=== PATIENT | male | born 1960 | race Caucasian/White ===

== ENCOUNTER 2018-06-17 14:26 | Inpatient (IN) | payer OTHER ==
[~2018-06-17] VITALS: Ht 182.9 cm; Wt 86.2 kg
[~2018-06-17 14:26] MED LIST: CEPH500 PO; Percocet 5-3251 EACH PO
[2018-06-17 15:18] LABS: BASOPHILS ABSOLUTE AUTO 0.05 K/mm3 (0.00-0.23); BASOPHILS PERCENT AUTO 0 % (0-2); EOSINOPHILS PERCENT AUTO 1 % (0-6); Hematocrit 40.6 % (37.0-53.0); Hemoglobin 13.5 g/dL (13.5-17.5); IMMATURE GRAN ABSOLUTE AUTO 0.04 K/mm3 (0.00-0.10); IMMATURE GRAN PERCENT AUTO 0 % (0-1); LYMPHOCYTES PERCENT AUTO 9 % (21-46); MONOCYTES ABSOLUTE AUTO 1.52 K/mm3 (0.16-1.47); MONOCYTES PERCENT AUTO 12 % (4-13); Mean Corpuscular HGB 27.9 pg (26.0-34.0); Mean Corpuscular HGB Conc 33.3 g/dL (31.5-36.5); Mean Corpuscular Volume 84 fL (80-100); Mean Platelet Volume 10.1 fL (9.1-12.4); NEUTROPHILS PERCENT AUTO 77 % (41-73); Platelet Count 299 K/mm3 (150-400); RDW Coefficient Variation 12.7 % (11.7-14.2); RDW Standard Deviation 38.6 fL (35.1-46.3); Red Blood Cell Count 4.84 M/mm3 (4.30-5.90); White Blood Cell Count 12.41 K/mm3 (4.00-11.30)
[2018-06-17 15:58] LABS: Anion Gap 6 mmol/L (6-16); Blood Urea Nitrogen 10 mg/dL (8-24); Bun/Creatinine Ratio 13.2 (12.0-20.0); CO2, Blood 29 mmol/L (21-32); Calcium, Blood 8.7 mg/dL (8.5-10.1); Chloride, Blood 97 mmol/L (98-108); Creatinine, Blood 0.76 mg/dL (0.60-1.20); Glomerular Filtration Rate >60 (60-); Glucose, Blood 369 mg/dL (70-99); Potassium, Blood 4.3 mmol/L (3.5-5.5); Sodium, Blood 132 mmol/L (136-145)
[2018-06-18 05:13] LABS: Hemoglobin 11.6 g/dL (13.5-17.5); Mean Corpuscular HGB 28.1 pg (26.0-34.0); Mean Corpuscular HGB Conc 33.1 g/dL (31.5-36.5); Mean Corpuscular Volume 85 fL (80-100); Mean Platelet Volume 9.8 fL (9.1-12.4); Platelet Count 235 K/mm3 (150-400); RDW Coefficient Variation 12.7 % (11.7-14.2); RDW Standard Deviation 39.3 fL (35.1-46.3); Red Blood Cell Count 4.13 M/mm3 (4.30-5.90); White Blood Cell Count 10.98 K/mm3 (4.00-11.30)
--- NOTE | 2018-06-18 05:41 | NUR ---
NEW ADMIT THIS SHIFT FOR RIGHT FOOT CELLULITIS RT DIABETIC FOOT ULCER. PT DID WELL AND SLEPT MOST OF SHIFT. PLAN FOR KLOEPPER CONSULT WITH POSSIBLE OR FOR DEBRIDEMENT OF WOUND. PT HAS SURGICAL PACKET ON CHART, NEW 18G IV RIGHT HAND, NPO, IVF AND IV ABX INFUSING.
[2018-06-18 05:54] LABS: Anion Gap 4 mmol/L (6-16); Blood Urea Nitrogen 8 mg/dL (8-24); CO2, Blood 30 mmol/L (21-32); Calcium, Blood 8.4 mg/dL (8.5-10.1); Chloride, Blood 106 mmol/L (98-108); Creatinine, Blood 0.73 mg/dL (0.60-1.20); Glomerular Filtration Rate >60 (60-); Glucose, Blood 154 mg/dL (70-99); Sodium, Blood 140 mmol/L (136-145)
--- NOTE | 2018-06-18 11:50 | NUR ---
TO SDS FROM ROOM 208 VIA TENZIN MOCTEZUMA, DEMETRICE, CONFIRMS NPO/PROCEDURE. History, Chart, Medications and Allergies reviewed before start of procedure.Lungs clear T/O to Auscultation. Patient confirms NPO status and agrees with scheduled surgery. Pre-Op teaching done. Pt verbalizes understanding.
--- NOTE | 2018-06-18 18:29 | NUR ---
SHIFT SUMMARY WOUND VAC WNL POST OP; DENIES PAIN. ABX GIVEN PRESCRIBED.
[2018-06-19 00:10] LABS: Bilirubin, Urine Neg (Neg); Blood, Urine Neg (Neg); Glucose Qualitative, Urine 4+ (Neg); Ketones, Urine Neg (Neg); Leukocyte Esterase, Urine Neg (Neg); Nitrite, Urine Neg (Neg); Protein, Urine Neg (Neg); Source, Urine Voided; Urobilinogen, Urine 3+ (Normal)
[2018-06-19 00:12] LABS: Appearance, Urine Clear (Clear); Color, Urine Yellow (P-Yellow)
[2018-06-19 05:13] LABS: BASOPHILS ABSOLUTE AUTO 0.04 K/mm3 (0.00-0.23); BASOPHILS PERCENT AUTO 0 % (0-2); EOSINOPHILS ABSOLUTE AUTO 0.08 K/mm3 (0.00-0.68); EOSINOPHILS PERCENT AUTO 1 % (0-6); Hematocrit 31.5 % (37.0-53.0); Hemoglobin 10.5 g/dL (13.5-17.5); IMMATURE GRAN ABSOLUTE AUTO 0.03 K/mm3 (0.00-0.10); IMMATURE GRAN PERCENT AUTO 0 % (0-1); LYMPHOCYTES ABSOLUTE AUTO 1.53 K/mm3 (0.84-5.20); LYMPHOCYTES PERCENT AUTO 14 % (21-46); MONOCYTES ABSOLUTE AUTO 0.95 K/mm3 (0.16-1.47); MONOCYTES PERCENT AUTO 9 % (4-13); Mean Corpuscular HGB Conc 33.3 g/dL (31.5-36.5); Mean Corpuscular Volume 84 fL (80-100); Mean Platelet Volume 10.3 fL (9.1-12.4); NEUTROPHILS ABSOLUTE AUTO 8.53 K/mm3 (1.96-9.15); NEUTROPHILS PERCENT AUTO 76 % (41-73); Platelet Count 237 K/mm3 (150-400); RDW Coefficient Variation 12.6 % (11.7-14.2); RDW Standard Deviation 38.1 fL (35.1-46.3); Red Blood Cell Count 3.75 M/mm3 (4.30-5.90); White Blood Cell Count 11.16 K/mm3 (4.00-11.30)
--- NOTE | 2018-06-19 07:37 | NUR ---
SHIFT SUMMARY PT A&O X4 T/O SHIFT. POD#1 WOUND VAC PLACEMENT TO R PEDAL ASPECT OF FOOT. SCANT SS DRAINAGE; SEAL/DRESSING INTACT. PPP X4. PHOTO OF WOUND TO L PEDAL FOOT DOCUMENTED IN CHART WITH PT PERMISSION. PAIN MANGED PER EMAR. RLE ELEVATED. PT BED MOBILE, REPOSITIONED SELF THROUGH NIGHT. IV GTT PER EMAR. SCD TO LLE. PT DENIES N/T IN ALL EXT. RA; DENIES SOB AND CP. CALL LIGHT IN REACH; PT DEMONSTRATES USE. REPORT GIVEN TO DAY SHIFT RN.
--- NOTE | 2018-06-19 18:14 | NUR ---
PATIENT W/O C/O THIS SHIFT. DENIES PAIN. VSS. WOUND VAC PATENT TO R FOOT. TAKING PO. PUBLIC HEALTH AIDES TEACHER HERE THIS AFTERNOON TO TALK WITH PATIENT RE: ADA DIET, ETC. POSSIBLE D/C HOME TOMORROW.
--- NOTE | 2018-06-20 05:50 | NUR ---
SHIFT SUMMARY PT A&O X4 T/O SHIFT. NO ACUTE CHANGES. POD#3 WOUND VAC PLACED TO R FOOT PLANTAR ASPECT. SEAL INTACT. SCANT SS DRAINAGE. RLE ELEVATED. PAIN MANGED PER EMAR. IV GTT PER EMAR. BLOOD GLUCOSE LEVELS MANGED PER ORDERS, PROTOCOL AND EMAR. PT BED MOBILE. PT DENIES SOB, CP AND NAUSEA T/O SHIFT. SCD TO LLE. CALL LIGHT IN REACH; PT DEMONSTRATES USE. WCTM UNTIL REPORT TO DAY SHIFT RN.
[2018-06-20 13:58] LABS: Vancomycin, Trough 21.6 ug/mL (5.0-10.0)
--- NOTE | 2018-06-20 14:18 | NUR ---
NOTIFIED MARGA IN PHARMACY OF PT'S CRITICAL HIGH VANCO TROUGH LEVEL.
--- NOTE | 2018-06-20 16:42 | NUR ---
SHIFT SUMMARY: PT IS A&O. HE HAS BEEN SHOWN HOW TO CHECK HIS BLOOD SUGAR AND PROVIDED WRITTEN MATERIALS BY THE SITE PHYSICIAN. 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 PT WOULD BENEFIT FROM REINFORCED EDUCATION. HE IS ABLE TO AMBULATE W/SBA WHILE WEIGHT BEARING ON HIS R HEEL ONLY. WOUND VAC BANDAGES CHANGED BY THIS AFTERNOON. WCTM UNTIL REPORT GIVEN TO NEXT SHIFT RN.
--- NOTE | 2018-06-20 22:20 | NUR ---
PT REQUESTED 2 PAIN MEDS EVEN THOUGH PAIN WAS LOW, DISCUSSED RAMIFICATIONS
--- NOTE | 2018-06-21 06:43 | NUR ---
a+o, wound dressing/vac cdi, successfully medicated for pain control, new IV placed on L upper arm, saline locked, call light in reach will continue to monitor and treat until provide sbar report to oncoming shift
--- NOTE | 2018-06-21 14:28 | NUR ---
SHIFT SUMMARY: PT IS A&OX4. WEIGHT BEARING ON R HEEL ONLY. HE IS ABLE TO MANAGE WOUND VAC/LINES WHEN AMBULATING TO THE RESTROOM. PT EDUCATED ON IMPORTANCE OF CONTROLLING HIS BLOOD GLUCOSE LEVELS AND WOUND HEALING. HIS IS ASKING APPROP QUESTIONS AND PARTICIPATING IN HIS CARE. PT IS HOPEFUL TO D/C HOME SATURDAY AFTERNOON. REPORT GIVEN TO NEXT RN. SHE WILL ADMINISTER THE [address] WOUND VAC IN PLACE WITH GOOD SEAL. SCANT OUTPUT IN CANISTER.
--- NOTE | 2018-06-22 00:11 | NUR ---
ASSUMED CARE OF PT. PT APPEARS TO BE SLEEPING IN BED, RESP E/U. NO S/SX DISTRESS NOTED. WOUND VAC INTACT W/GOOD SX. WILL CONT TO MONITOR.
--- NOTE | 2018-06-22 04:22 | NUR ---
POD 4 S/P I&D OF R FOOT. PT VSS T/O NIGHT. WOUND VAC DRESSING INTACT W/GOOD SX. PAIN MGD PER EMAR W/REP RELIEF. PT INDEP IN ROOM, IS USING CALL LIGHT FOR ASSISTANCE, WILL CONT TO MONITOR UNTIL REP GIVEN TO ONCOMING RN.
--- NOTE | 2018-06-22 17:10 | NUR ---
SHIFT SUMMARY: WOUND VAC HAS A GOOD SEAL, DRESSING C/D/I. SBA WHILE OOB. TOLERATED UP FOR A SHOWER WELL. NEEDS ENCOURAGEMENT FOR OUT OF BED. PROVIDED DIETARY EDUCATION FOR BETTER ADA FREINDLY SNACKS. PT WOULD BENEFIT FROM MORE EDUCATION. WILL PASS ON TO NEXT RN FOR REINFORCEMENT. PT HAS DENIED PAIN T/O DAY. WILL CTM UNTIL REPORT GIVEN TO NEXT RN.
[2018-06-23 05:11] LABS: Albumin, Blood 2.8 g/dL (3.4-5.0); Anion Gap 6 mmol/L (6-16); Blood Urea Nitrogen 17 mg/dL (8-24); CO2, Blood 28 mmol/L (21-32); Chloride, Blood 103 mmol/L (98-108); Creatinine, Blood 0.74 mg/dL (0.60-1.20); Glomerular Filtration Rate >60 (60-); Glucose, Blood 158 mg/dL (70-99); Phosphorus, Blood 2.9 mg/dL (2.5-4.9); Potassium, Blood 4.3 mmol/L (3.5-5.5); Sodium, Blood 137 mmol/L (136-145)
--- NOTE | 2018-06-23 05:56 | NUR ---
NO CHANGES THIS SHIFT. PAIN WELL MANAGED WITH PO PRN PAIN MEDS. CONTINUING EDUCATION WITH DM DISEASE PROCESS, VOICES UNDERSTANDING. DENIES PAIN, DISCOMFORT, OR FURTHER NEEDS AT THIS TIME. SAFETY MEASURES IN PLACE. WILL CONTINUE TO MONITOR.
--- NOTE | 2018-06-23 17:48 | NUR ---
MEASUREMENTS: 17 H X 24 W X 25 D.
--- NOTE | 2018-06-23 17:59 | NUR ---
SHIFT SUMMARY PT A&OX4, VSS, POD5 I&D R FOOT, WOUND VAC CHANGED TODAY, MEASUREMENTS DOCUMENTED BY ORTHO SURGEON. PT TOOK CBG X 2 TODAY. DEICER INSPECTOR PNEUMATIC EDU ABOUT FOOD/SNACKS. DISCHARGE PLANNING IS WORKING ON INS & WOUND VAC FOR PT DC. DENIES PAIN TODAY. CBG'S CNI. QUYNH PO, DENIES N&V. WCTM & TX PRN UNTIL REPORT GIVEN TO ONCOMING MACRINA RN.
--- NOTE | 2018-06-24 04:18 | NUR ---
SHIFT SUMMARY: PT POD #6 FOR I&D OF R FOOT. WOUND VAC IN PLACE AND DRAINING SML AMTS OF SS FLUID. ULCER ON L FOOT OPEN TO AIR WITH NO DRG NOTED. VS WNL. A&O X4. MEDICATED WITH NORCO ONCE THIS SHIFT PER EMAR. PT C/O SOME N/V. EMESIS X1. PT REPORTS FEELING BETTER IMMEDIATELY AFTER. REPORTS EATING TOMATO SOUP EARLIER WHICH DID NOT SETTLE WITH HIS STOMACH. PT EDUCATED ON HIS DM DIAGNOSIS AND ORAL ABX. CONTINUE TO REINFORCE. BG CHECKS WNL. PT READY TO DISCHARGE PENDING POWER OUTAGE. WILL BE SENT HOME WITH WOUND VAC.
--- NOTE | 2018-06-24 08:52 | NUR ---
LATE NOTE, EDUCATION PROVIDED 06/23/18 ~11:30am Plate method and consistent carb/carb counting education provided to pt. Pt has difficulty recalling many concepts. Reviewed Plate Method handout multiple times, w/ focus on which foods are carbohydrates. Pt better with recall when addressing specific foods versus food groups. Pt asks appropriate questions. In the end, education focused on following the Plate Method (including each of five food groups at every meal, for a total of 3-4 carbohydrate choices at each meal). Pt seemed to grasp this concept most, especially with Plate Method Placemat Handout. Pt lunch tray arrived and we counted the carbohydrates on his meal tray, which he was able to identify and count with some mild competency. Pt will require much more practice and reinforcement regarding carbohydrate foods and carbohydrate counting.
--- NOTE | 2018-06-24 10:55 | NUR ---
ASSUMED CARE OF PATIENT AT THIS TIME.
--- NOTE | 2018-06-24 11:20 | NUR ---
THERAPY: OT IN ROOM TO WORK WITH PATIENT. DENIES PAIN AT THIS TIME.
--- NOTE | 2018-06-24 12:57 | NUR ---
HOME WOUND VAC DELIVERED. CM IN ROOM TO INSTRUCT USE. PT WORKING ON GETTING POWER SOURCE AT HOME TO KEEP WOUND VAC CHARGED.
--- NOTE | 2018-06-24 18:26 | NUR ---
PT HAS BEEN STABLE SINCE THIS RN ASSUMED CARE. PT INDEP IN ROOM, HEEL WALKING ONLY. WORKED WELL WITH THERAPY. PT NEEDS MORE EDUCATION ON CHECKING BLOOD SUGARS, INSTRUCTIONS ADDED TO DC EDUCATION. BLOOD SUGAR CHECKS CHANGED TO BID. PT HAS REQUIRED NO COVERAGE THIS SHIFT. PT HOME WOUND VAC DELIVERED THIS AFTERNOON, DC DELAYED R/T PT NOT HAVING POWER IN HOME. PT VERY WORRIED ABOUT ANIMAL THAT IS IN HOME AND IS ANXIOUS TO DC. NEW ORDER TO SEPARATE MEDS, PT GETS SICK TO HIS STOMACH WITH TOO MANY MEDS AT ONCE. PT GIVEN YOGURT WHEN THIS RN GAVE MEDS. PT INDEP TO BATHROOM, VOIDING WELL. GOOD APPETITE. CALLS APPROPRIATELY NEEDED.
--- NOTE | 2018-06-25 05:39 | NUR ---
POD 7 S/P I&D OF R FOOT. PT VSS T/O NIGHT. DRESSING AND WOUND VAC INTACT W/SCANT DRNG. WOUND VAC W/GOOD SEAL, SX MAINTAINED T/O NIGHT. PT DENIED PAIN. PT INDEP IN ROOM, AMB ON HEEL. PT ASKING QUESTIONS R/T DIABETIC DIET OPTIONS, IS RECEPTORVE TO INFORMATION. PT USING CALL LIGHT FOR ASSISTANCE, WILL CONT TO MONITOR UNTIL REP GIVEN TO ONCOMING RN.
[2018-06-25] MEDS ORDERED: Tylenol325 MG PO (11:48)
[2018-06-25] MEDS ORDERED: CIPR500 PO (11:48)
[2018-06-25] MEDS ORDERED: HYDR1TAB94 PO (11:49)
[2018-06-25] MEDS ORDERED: GLIP5 PO (11:49)
[2018-06-25] MEDS ORDERED: METF500C PO (11:50)
[2018-06-25] MEDS ORDERED: INSULANPEN SC (11:50)
[2018-06-25] MEDS ORDERED: Acidophilus La100 GM PO (11:50)
[2018-06-25] MEDS ORDERED: METR500 PO (11:51)
--- NOTE | 2018-06-25 12:59 | NUR ---
PROVENA DRESSING PLACED TO RIGHT FOOT WITH GOOD SUCTION OBTAINED
--- NOTE | 2018-06-25 15:23 | NUR ---
PATIENT EDUCATED ON INSULIN PEN, MONITORING OF BLOOD SUGAR, PROVENA WOUND VAC
== END 2018-06-25 16:36 | disposition home or self-care (01) | DRG 854 ==
LOC: ER 14:26 → SURS 21:34
PROVIDERS: Internal Medicine; Orthopaedic Surgery; Pharmacist; Physician Assistant; ADMIT Internal Medicine
PROC: 0JDQ0ZZ Extraction of Right Foot Subcutaneous Tissue and Fascia, Open Approach (ICD-10-PCS; principal; 2018-06-18 12:30)
DX: A41.9 Sepsis, unspecified organism (principal); E87.1 Hypo-osmolality and hyponatremia; L03.115 Cellulitis of right lower limb; L97.518 Non-pressure chronic ulcer of other part of right foot with other specified severity; E11.621 Type 2 diabetes mellitus with foot ulcer; R65.20 Severe sepsis without septic shock; Z66 Do not resuscitate; Z79.4 Long term (current) use of insulin
CPT/HCPCS: 36415; 73630; 73701; 80048; 80069; 80202; 81003; 82947; 83036; 83605; 85025; 85027; 87040; 87070; 87071; 87075; 87076; 87077; 87147; 87186; 87205; 93005; 93010; 96361-59; 96365-59; 96366-59; 96367-59; 97161; 97165; 97530; 97535; 99285-25; J1100; J1650; J1885; J2250; J2370; J2405; J2543; J3010; J3370; J7030; J7050; J7120; Q9967

== ENCOUNTER 2018-07-08 12:17 | Day surgery (SDC) | payer OTHER ==
[~2018-07-08 12:17] MED LIST changes: +Acidophilus La100 GM PO; +CIPR500 PO; +GLIP5 PO; +HYDR1TAB94 PO; +INSULANPEN SC; +METF500C PO; +METR500 PO; +Tylenol325 MG PO
== END 2018-07-08 22:36 | disposition home or self-care (01) ==
LOC: WOUND 12:17
DX: E11.621 Type 2 diabetes mellitus with foot ulcer (principal); E11.628 Type 2 diabetes mellitus with other skin complications; L97.513 Non-pressure chronic ulcer of other part of right foot with necrosis of muscle; L97.525 Non-pressure chronic ulcer of other part of left foot with muscle involvement without evidence of necrosis; L03.115 Cellulitis of right lower limb
CPT/HCPCS: G0463

== ENCOUNTER 2018-07-11 00:58 | Day surgery (SDC) | payer OTHER | END 2018-07-11 12:00 | disposition home or self-care (01) | LOC: WOUND 00:58 | DX: T81.89XA Other complications of procedures, not elsewhere classified, initial encounter (principal); E11.621 Type 2 diabetes mellitus with foot ulcer; L97.525 Non-pressure chronic ulcer of other part of left foot with muscle involvement without evidence of necrosis; E11.40 Type 2 diabetes mellitus with diabetic neuropathy, unspecified ==

== ENCOUNTER 2018-07-14 01:22 | Day surgery (SDC) | payer OTHER | END 2018-07-14 22:38 | disposition home or self-care (01) | LOC: WOUND 01:22 | DX: T81.89XA Other complications of procedures, not elsewhere classified, initial encounter (principal); E11.621 Type 2 diabetes mellitus with foot ulcer; L97.525 Non-pressure chronic ulcer of other part of left foot with muscle involvement without evidence of necrosis; E11.40 Type 2 diabetes mellitus with diabetic neuropathy, unspecified | CPT/HCPCS: G0463 ==

== ENCOUNTER 2018-07-15 00:11 | Day surgery (SDC) | payer OTHER | END 2018-07-15 22:49 | disposition home or self-care (01) | LOC: WOUND 00:11 | DX: T81.89XA Other complications of procedures, not elsewhere classified, initial encounter (principal); E11.621 Type 2 diabetes mellitus with foot ulcer; L97.525 Non-pressure chronic ulcer of other part of left foot with muscle involvement without evidence of necrosis; E11.40 Type 2 diabetes mellitus with diabetic neuropathy, unspecified | CPT/HCPCS: G0463 ==

== ENCOUNTER 2018-07-16 00:36 | Day surgery (SDC) | payer OTHER | END 2018-07-16 22:35 | disposition home or self-care (01) | LOC: WOUND 00:36 | DX: E11.621 Type 2 diabetes mellitus with foot ulcer (principal); L97.513 Non-pressure chronic ulcer of other part of right foot with necrosis of muscle; L97.522 Non-pressure chronic ulcer of other part of left foot with fat layer exposed; L03.115 Cellulitis of right lower limb; E11.40 Type 2 diabetes mellitus with diabetic neuropathy, unspecified | CPT/HCPCS: 87070; 87075; 87077; 87186; 87205 ==

== ENCOUNTER 2018-07-21 13:38 | Day surgery (SDC) | payer OTHER | END 2018-07-21 22:44 | disposition home or self-care (01) | LOC: WOUND 13:38 | DX: E11.621 Type 2 diabetes mellitus with foot ulcer (principal); L97.515 Non-pressure chronic ulcer of other part of right foot with muscle involvement without evidence of necrosis; L97.521 Non-pressure chronic ulcer of other part of left foot limited to breakdown of skin; E11.40 Type 2 diabetes mellitus with diabetic neuropathy, unspecified ==

== ENCOUNTER 2018-07-25 00:27 | Day surgery (SDC) | payer OTHER | END 2018-07-25 23:03 | disposition home or self-care (01) | LOC: WOUND 00:27 | DX: E11.621 Type 2 diabetes mellitus with foot ulcer (principal); L97.515 Non-pressure chronic ulcer of other part of right foot with muscle involvement without evidence of necrosis; L97.522 Non-pressure chronic ulcer of other part of left foot with fat layer exposed; E11.40 Type 2 diabetes mellitus with diabetic neuropathy, unspecified | CPT/HCPCS: G0463 ==

== ENCOUNTER 2018-07-28 00:14 | Day surgery (SDC) | payer OTHER | END 2018-07-28 23:00 | disposition home or self-care (01) | LOC: WOUND 00:14 | DX: E11.621 Type 2 diabetes mellitus with foot ulcer (principal); L03.115 Cellulitis of right lower limb; L97.515 Non-pressure chronic ulcer of other part of right foot with muscle involvement without evidence of necrosis; L97.522 Non-pressure chronic ulcer of other part of left foot with fat layer exposed; E11.40 Type 2 diabetes mellitus with diabetic neuropathy, unspecified ==

== ENCOUNTER 2018-07-30 00:46 | Day surgery (SDC) | payer OTHER | END 2018-07-30 23:06 | disposition home or self-care (01) | LOC: WOUND 00:46 | DX: E11.621 Type 2 diabetes mellitus with foot ulcer (principal); L97.525 Non-pressure chronic ulcer of other part of left foot with muscle involvement without evidence of necrosis; E11.40 Type 2 diabetes mellitus with diabetic neuropathy, unspecified ==

== ENCOUNTER 2018-08-01 00:43 | Day surgery (SDC) | payer OTHER | END 2018-08-01 22:47 | disposition home or self-care (01) | LOC: WOUND 00:43 | DX: E11.621 Type 2 diabetes mellitus with foot ulcer (principal); L97.525 Non-pressure chronic ulcer of other part of left foot with muscle involvement without evidence of necrosis | CPT/HCPCS: G0463 ==

== ENCOUNTER 2018-08-04 13:15 | Day surgery (SDC) | payer OTHER | END 2018-08-04 22:43 | disposition home or self-care (01) | LOC: WOUND 13:15 | DX: T81.89XA Other complications of procedures, not elsewhere classified, initial encounter (principal); E11.621 Type 2 diabetes mellitus with foot ulcer; L97.525 Non-pressure chronic ulcer of other part of left foot with muscle involvement without evidence of necrosis; E11.40 Type 2 diabetes mellitus with diabetic neuropathy, unspecified | CPT/HCPCS: G0463 ==

== ENCOUNTER 2018-08-06 11:00 | Day surgery (SDC) | payer OTHER | END 2018-08-06 22:53 | disposition home or self-care (01) | LOC: WOUND 11:00 | DX: E11.621 Type 2 diabetes mellitus with foot ulcer (principal); L97.511 Non-pressure chronic ulcer of other part of right foot limited to breakdown of skin; L97.525 Non-pressure chronic ulcer of other part of left foot with muscle involvement without evidence of necrosis | CPT/HCPCS: G0463 ==

== ENCOUNTER 2018-08-11 13:45 | Day surgery (SDC) | payer OTHER | END 2018-08-11 22:42 | disposition home or self-care (01) | LOC: WOUND 13:45 | DX: E11.621 Type 2 diabetes mellitus with foot ulcer (principal); L97.515 Non-pressure chronic ulcer of other part of right foot with muscle involvement without evidence of necrosis; L97.525 Non-pressure chronic ulcer of other part of left foot with muscle involvement without evidence of necrosis | CPT/HCPCS: G0463 ==

== ENCOUNTER 2018-08-13 07:55 | Day surgery (SDC) | payer OTHER | END 2018-08-13 22:37 | disposition home or self-care (01) | LOC: WOUND 07:55 | DX: T81.89XA Other complications of procedures, not elsewhere classified, initial encounter (principal); E11.621 Type 2 diabetes mellitus with foot ulcer; L97.515 Non-pressure chronic ulcer of other part of right foot with muscle involvement without evidence of necrosis; L97.525 Non-pressure chronic ulcer of other part of left foot with muscle involvement without evidence of necrosis; E11.40 Type 2 diabetes mellitus with diabetic neuropathy, unspecified | CPT/HCPCS: G0463 ==

== ENCOUNTER 2018-08-18 13:50 | Day surgery (SDC) | payer OTHER | END 2018-08-18 22:37 | disposition home or self-care (01) | LOC: WOUND 13:50 | DX: T81.89XA Other complications of procedures, not elsewhere classified, initial encounter (principal); E11.621 Type 2 diabetes mellitus with foot ulcer; L97.525 Non-pressure chronic ulcer of other part of left foot with muscle involvement without evidence of necrosis; E11.40 Type 2 diabetes mellitus with diabetic neuropathy, unspecified ==

== ENCOUNTER 2018-08-25 13:44 | Day surgery (SDC) | payer OTHER | END 2018-08-25 23:02 | disposition home or self-care (01) | LOC: WOUND 13:44 | DX: T81.89XA Other complications of procedures, not elsewhere classified, initial encounter (principal); E11.621 Type 2 diabetes mellitus with foot ulcer; L97.512 Non-pressure chronic ulcer of other part of right foot with fat layer exposed; L97.525 Non-pressure chronic ulcer of other part of left foot with muscle involvement without evidence of necrosis; E11.40 Type 2 diabetes mellitus with diabetic neuropathy, unspecified | CPT/HCPCS: 73630 ==

== ENCOUNTER 2018-09-01 13:45 | Day surgery (SDC) | payer OTHER | END 2018-09-01 22:38 | disposition home or self-care (01) | LOC: WOUND 13:45 | DX: T81.89XA Other complications of procedures, not elsewhere classified, initial encounter (principal); E11.621 Type 2 diabetes mellitus with foot ulcer; L97.512 Non-pressure chronic ulcer of other part of right foot with fat layer exposed; L97.525 Non-pressure chronic ulcer of other part of left foot with muscle involvement without evidence of necrosis; E11.69 Type 2 diabetes mellitus with other specified complication; M86.18 Other acute osteomyelitis, other site; E11.40 Type 2 diabetes mellitus with diabetic neuropathy, unspecified ==

== ENCOUNTER 2018-09-10 00:10 | Day surgery (SDC) | payer OTHER | END 2018-09-10 22:39 | disposition home or self-care (01) | LOC: WOUND 00:10 | DX: T81.89XA Other complications of procedures, not elsewhere classified, initial encounter (principal); E11.621 Type 2 diabetes mellitus with foot ulcer; L97.512 Non-pressure chronic ulcer of other part of right foot with fat layer exposed; E11.40 Type 2 diabetes mellitus with diabetic neuropathy, unspecified ==

== ENCOUNTER 2018-09-15 07:55 | Day surgery (SDC) | payer OTHER | END 2018-09-15 22:36 | disposition home or self-care (01) | LOC: WOUND 07:55 | DX: E11.621 Type 2 diabetes mellitus with foot ulcer (principal); E11.69 Type 2 diabetes mellitus with other specified complication; L97.512 Non-pressure chronic ulcer of other part of right foot with fat layer exposed; M86.18 Other acute osteomyelitis, other site; E11.40 Type 2 diabetes mellitus with diabetic neuropathy, unspecified ==

== ENCOUNTER 2018-09-24 14:31 | Day surgery (SDC) | payer OTHER | END 2018-09-24 22:46 | disposition home or self-care (01) | LOC: WOUND 14:31 | DX: E11.621 Type 2 diabetes mellitus with foot ulcer (principal); E11.69 Type 2 diabetes mellitus with other specified complication; L97.515 Non-pressure chronic ulcer of other part of right foot with muscle involvement without evidence of necrosis; M86.18 Other acute osteomyelitis, other site; E11.40 Type 2 diabetes mellitus with diabetic neuropathy, unspecified | CPT/HCPCS: G0463 ==

== ENCOUNTER 2019-01-04 17:28 | Emergency (ER) | payer OTHER ==
[~2019-01-04] VITALS: Ht 182.9 cm; Wt 79.4 kg
[2019-01-04] MEDS ORDERED: Monodox100 MG PO (20:11)
[2019-01-04] MEDS ORDERED: CEPH500 PO (20:11)
== END 2019-01-04 20:21 | disposition home or self-care (01) ==
LOC: ER 17:28
DX: E11.621 Type 2 diabetes mellitus with foot ulcer (principal); L97.519 Non-pressure chronic ulcer of other part of right foot with unspecified severity; Z91.030 Bee allergy status; Z79.899 Other long term (current) drug therapy; Z79.4 Long term (current) use of insulin
CPT/HCPCS: 73620; 99283-25

== ENCOUNTER 2019-01-16 07:31 | Day surgery (SDC) | payer OTHER ==
[~2019-01-16 07:31] MED LIST changes: +Monodox100 MG PO
[2019-01-16] MEDS ORDERED: LISI5 PO (12:03)
[2019-01-16] MEDS ORDERED: GLIM2 PO (13:01)
[2019-01-16] MEDS ORDERED: ATOR10 PO (13:02)
== END 2019-01-16 23:20 | disposition home or self-care (01) ==
LOC: WOUND
DX: E11.621 Type 2 diabetes mellitus with foot ulcer (principal); L97.515 Non-pressure chronic ulcer of other part of right foot with muscle involvement without evidence of necrosis; E11.40 Type 2 diabetes mellitus with diabetic neuropathy, unspecified; E11.42 Type 2 diabetes mellitus with diabetic polyneuropathy; L03.115 Cellulitis of right lower limb; E11.69 Type 2 diabetes mellitus with other specified complication; M86.9 Osteomyelitis, unspecified; M84.477A Pathological fracture, right toe(s), initial encounter for fracture; Z91.030 Bee allergy status; Z79.899 Other long term (current) drug therapy; Z79.4 Long term (current) use of insulin
CPT/HCPCS: 36415; 73630; 80053; 85025; 87071; 87075; 87147; 87205; 88305; 88311; 99283-25; G0463

== ENCOUNTER 2019-01-22 10:48 | Day surgery (SDC) | payer OTHER ==
[~2019-01-22] VITALS: Ht 182.9 cm; Wt 83.2 kg
[~2019-01-22 10:48] MED LIST changes: +ATOR10 PO; +GLIM2 PO; +LISI5 PO
--- NOTE | 2019-01-22 13:07 | NUR ---
01/22/19 1307 Agueda Tapia PT RESTING IN RECLINER EATING CRACKERS AND JUICE. PT DENIES PAIN AND NAUSEA AT THIS TIME. VSS.
== END 2019-01-22 13:41 | disposition home or self-care (01) ==
LOC: ORSCSDS 10:48
PROVIDERS: Podiatrist Foot & Ankle Surgery
PROC: 0Y6V0Z0 Detachment at Right 4th Toe, Complete, Open Approach (ICD-10-PCS; principal; 2019-01-22 12:00)
DX: M86.171 Other acute osteomyelitis, right ankle and foot (principal); E11.621 Type 2 diabetes mellitus with foot ulcer; E11.40 Type 2 diabetes mellitus with diabetic neuropathy, unspecified; Z87.891 Personal history of nicotine dependence; Z79.84 Long term (current) use of oral hypoglycemic drugs; Z79.899 Other long term (current) drug therapy
CPT/HCPCS: 82947; 88305; 88311; J0690; J2250; J2704

== ENCOUNTER 2019-02-09 15:28 | Day surgery (SDC) | payer OTHER | END 2019-02-09 23:17 | disposition home or self-care (01) | LOC: WOUND 15:28 | DX: T87.89 Other complications of amputation stump (principal); E11.621 Type 2 diabetes mellitus with foot ulcer; L97.512 Non-pressure chronic ulcer of other part of right foot with fat layer exposed; E11.40 Type 2 diabetes mellitus with diabetic neuropathy, unspecified; Z89.421 Acquired absence of other right toe(s) ==

== ENCOUNTER 2019-02-17 00:23 | Day surgery (SDC) | payer OTHER | END 2019-02-17 22:40 | disposition home or self-care (01) | LOC: WOUND 00:23 | DX: T87.89 Other complications of amputation stump (principal); E11.621 Type 2 diabetes mellitus with foot ulcer; L97.512 Non-pressure chronic ulcer of other part of right foot with fat layer exposed; E11.40 Type 2 diabetes mellitus with diabetic neuropathy, unspecified; Z89.421 Acquired absence of other right toe(s) ==

== ENCOUNTER 2019-02-26 00:13 | Day surgery (SDC) | payer OTHER | END 2019-02-26 23:08 | disposition home or self-care (01) | LOC: WOUND 00:13 | DX: E11.621 Type 2 diabetes mellitus with foot ulcer (principal); L97.514 Non-pressure chronic ulcer of other part of right foot with necrosis of bone; Z89.421 Acquired absence of other right toe(s); Z79.84 Long term (current) use of oral hypoglycemic drugs | CPT/HCPCS: G0463 ==

== ENCOUNTER 2022-03-15 09:07 | Inpatient (IN) | payer MEDICARE, OTHER ==
[~2022-03-15] VITALS: Ht 180.3 cm; Wt 82.5 kg
[2022-03-15 10:40] LABS: BASOPHILS ABSOLUTE AUTO 0.07 K/mm3 (0.00-0.23); BASOPHILS PERCENT AUTO 1 % (0-2); EOSINOPHILS ABSOLUTE AUTO 0.23 K/mm3 (0.00-0.68); EOSINOPHILS PERCENT AUTO 2 % (0-6); Hematocrit 38.9 % (37.0-53.0); Hemoglobin 12.7 g/dL (13.5-17.5); IMMATURE GRAN ABSOLUTE AUTO 0.06 K/mm3 (0.00-0.10); IMMATURE GRAN PERCENT AUTO 1 % (0-1); LYMPHOCYTES ABSOLUTE AUTO 1.33 K/mm3 (0.84-5.20); LYMPHOCYTES PERCENT AUTO 11 % (21-46); MONOCYTES ABSOLUTE AUTO 1.01 K/mm3 (0.16-1.47); MONOCYTES PERCENT AUTO 8 % (4-13); Mean Corpuscular HGB 26.8 pg (26.0-34.0); Mean Corpuscular HGB Conc 32.6 g/dL (31.5-36.5); Mean Corpuscular Volume 82 fL (80-100); Mean Platelet Volume 9.9 fL (9.1-12.4); NEUTROPHILS PERCENT AUTO 78 % (41-73); Platelet Count 418 K/mm3 (150-400); RDW Coefficient Variation 12.7 % (11.7-14.2); Red Blood Cell Count 4.74 M/mm3 (4.30-5.90)
[2022-03-15 11:51] LABS: Albumin, Blood 2.9 g/dL (3.4-5.0); Albumin/Globulin Ratio 0.6 (0.8-1.8); Bilirubin, Total 0.5 mg/dL (0.1-1.0); Bun/Creatinine Ratio 22.1 (12.0-20.0); Calcium, Blood 9.4 mg/dL (8.5-10.1); Creatinine, Blood 0.68 mg/dL (0.60-1.20); Globulin, Blood 5.1 g/dL (2.2-4.0); Potassium, Blood 4.9 mmol/L (3.5-5.5)
--- NOTE | 2022-03-15 19:50 | NUR ---
SUMMARY- PT A/O X4. AMBULATES STEADY ON FEET. NECROTIC L 2ND METATARCIL, FOUL SMELLING, BLACK ESCHAR SURROUNDING RED EDGES EXTENDING INTO FOOT 2 INCHES. PICTURES TAKEN. PT DENIES PAIN TO FOOT. DR DEXTER WILL BE PERFORMING SURG 03/16 APPROX 1530, DR RUIZ TO VISUALIZE FOOT AND SPEAK WITH PT THIS MANUEL, OK'D PT TO HAVE REG ADA DIET THROUGH BREAKFAST TOMORROW AND NPO NO LATER THAN 0830. BLOOD SUGAR CHECKED AT 1600, WAS 199, CALLED DR KAHN, INSTRUCTED TO NOT GIVE ANY INSULIN (DOSE ORDERED IN ED NOT GIVEN BY RN ALSO DC'D). FOOT CLEANSED WITH BETADINE, WRAPPED WITH XEREFORM AND GAUZE. REPORTED TO NOC RN'S.
[2022-03-16 05:07] LABS: BASOPHILS ABSOLUTE AUTO 0.05 K/mm3 (0.00-0.23); BASOPHILS PERCENT AUTO 1 % (0-2); EOSINOPHILS ABSOLUTE AUTO 0.28 K/mm3 (0.00-0.68); EOSINOPHILS PERCENT AUTO 3 % (0-6); Hematocrit 32.5 % (37.0-53.0); Hemoglobin 10.8 g/dL (13.5-17.5); IMMATURE GRAN ABSOLUTE AUTO 0.04 K/mm3 (0.00-0.10); IMMATURE GRAN PERCENT AUTO 1 % (0-1); LYMPHOCYTES ABSOLUTE AUTO 1.61 K/mm3 (0.84-5.20); LYMPHOCYTES PERCENT AUTO 18 % (21-46); MONOCYTES ABSOLUTE AUTO 0.85 K/mm3 (0.16-1.47); MONOCYTES PERCENT AUTO 10 % (4-13); Mean Corpuscular HGB 27.1 pg (26.0-34.0); Mean Corpuscular HGB Conc 33.2 g/dL (31.5-36.5); Mean Corpuscular Volume 82 fL (80-100); Mean Platelet Volume 9.9 fL (9.1-12.4); NEUTROPHILS ABSOLUTE AUTO 6.01 K/mm3 (1.96-9.15); NEUTROPHILS PERCENT AUTO 68 % (41-73); Platelet Count 369 K/mm3 (150-400); RDW Coefficient Variation 12.6 % (11.7-14.2); RDW Standard Deviation 37.5 fL (35.1-46.3); Red Blood Cell Count 3.99 M/mm3 (4.30-5.90); White Blood Cell Count 8.84 K/mm3 (4.00-11.30)
[2022-03-16 05:30] LABS: Albumin, Blood 2.2 g/dL (3.4-5.0); Albumin/Globulin Ratio 0.6 (0.8-1.8); Bilirubin, Total 0.2 mg/dL (0.1-1.0); Bun/Creatinine Ratio 24.2 (12.0-20.0); Calcium, Blood 8.5 mg/dL (8.5-10.1); Creatinine, Blood 0.7 mg/dL (0.60-1.20); Potassium, Blood 4.2 mmol/L (3.5-5.5); Total Protein, Blood 6.2 g/dL (6.4-8.2)
--- NOTE | 2022-03-16 07:14 | NUR ---
SHIFT SUMMARY; NO ACUTE CHANGES OVERNIGHT. THE PT DENIES ANY PAIN OR SOB. PT REMAINED INDEPENDENT IN THE ROOM. 2ND TOE AMPUTATION TO THE L FOOT IS SCHEDULED FOR TODAY AT 1530. CURRENTLY THE PT IS RESTING IN BED WITH THE BED IN THE LOWEST POSITION AND THE CALL LIGHT AT BEDSIDE.
[2022-03-16 13:46] LABS: Vancomycin, Trough 14.6 ug/mL (5.0-10.0)
--- NOTE | 2022-03-16 17:08 | NUR ---
SHIFT SUMMARY NO ACUTE CHANGES DURING SHIFT. PT ALERT AND ORIENTED, CALLS APPROPRIATELY. PT TO HAVE LEFT 2ND TOE AMPUTATED TODAY. PT LEFT FLOOR AT 1700. PT REMAINS ON RA, INDEPENDENT IN ROOM. WILL CONTINUE TO MONITOR UPON RETURN.
--- NOTE | 2022-03-16 19:27 | NUR ---
RETURNED TO FLOOR FROM OR WITH DRESSING INTACT OF LEFT FOOT. BIOLOGY TUTOR VOICED AMPUTATION OF 2ND TOE OF LEFT FOOT. AFFECT CHEERFUL. DENIES PAIN. IVF INFUSING. CALL LIGHT IN REACH.
--- NOTE | 2022-03-17 05:47 | NUR ---
RECREATION COUNSELOR SUMMARY PT IS POD 0 FOR AMPUTATION OF 2ND TOE ON L FOOT. PT HAS DENIED PAIN TONIGHT AND HAS DECLINED PAIN MEDS. TOE DRESSING WITH SOME SMALL AMOUNT OF DRAINAGE BUT INTACT. PT HAS RESTED MOST OF THE NIGHT WITH NO COMPLAINTS. EATING AND DRINKING WELL. VSS, WILL CONTINUE TO MONITOR.
[2022-03-17] MEDS ORDERED: GLIM2 PO (12:43)
--- NOTE | 2022-03-17 15:08 | NUR ---
PT D/C HOME. PT GIVEN DISCHARGE INSTRUCTIONS AND EDUCATIONI. ALL QUESTIONS ANSWERED AND PT VERBALIZED NO NEW QUESTIONS. DRESSING CHANGE COMPLETED PER MD ORDERS. PT TOLERATED WELL. ALL BELONGINGS RETURNED TO PT. PT TAKEN BY WHEEL CHAIR TO WAITING VEHICLE.
== END 2022-03-17 15:03 | disposition home or self-care (01) | DRG 854 ==
LOC: ER 09:07 → MEDS 12:35
PROVIDERS: Nurse Practitioner Acute Care; Physician Assistant; Podiatrist Foot & Ankle Surgery; ADMIT Family Medicine
PROC: 3E03329 Introduction of Other Anti-infective into Peripheral Vein, Percutaneous Approach (ICD-10-PCS; 2022-03-15)
PROC: 0Y6S0Z0 Detachment at Left 2nd Toe, Complete, Open Approach (ICD-10-PCS; principal; 2022-03-16 16:00)
DX: A41.9 Sepsis, unspecified organism (principal); E11.52 Type 2 diabetes mellitus with diabetic peripheral angiopathy with gangrene; M86.8X7 Other osteomyelitis, ankle and foot; I96 Gangrene, not elsewhere classified; L03.116 Cellulitis of left lower limb; E11.621 Type 2 diabetes mellitus with foot ulcer; L97.524 Non-pressure chronic ulcer of other part of left foot with necrosis of bone; B96.4 Proteus (mirabilis) (morganii) as the cause of diseases classified elsewhere; B95.4 Other streptococcus as the cause of diseases classified elsewhere; F12.10 Cannabis abuse, uncomplicated; B95.61 Methicillin susceptible Staphylococcus aureus infection as the cause of diseases classified elsewhere; Z91.038 Other insect allergy status; Z79.84 Long term (current) use of oral hypoglycemic drugs; Z79.899 Other long term (current) drug therapy; Z89.421 Acquired absence of other right toe(s)
CPT/HCPCS: 36415; 80053; 80202; 82947; 83605; 85025; 87040; 87071; 87075; 87077; 87147; 87186; 87205; 93005; 93010; 96365; 96366; 96375; 99284-25; A9270; J0692; J0696; J1100; J1885; J2250; J2405; J2704; J2795; J3010; J3370; J7030; J7050; J7120

== ENCOUNTER 2022-04-18 15:04 | Observation (INO) | payer MEDICARE, OTHER ==
[~2022-04-18] VITALS: Ht 180.3 cm; Wt 84.1 kg
[2022-04-18 19:59] LABS: BASOPHILS ABSOLUTE AUTO 0.04 K/mm3 (0.00-0.23); BASOPHILS PERCENT AUTO 1 % (0-2); EOSINOPHILS ABSOLUTE AUTO 0.13 K/mm3 (0.00-0.68); EOSINOPHILS PERCENT AUTO 2 % (0-6); Hematocrit 38.7 % (37.0-53.0); Hemoglobin 12.8 g/dL (13.5-17.5); IMMATURE GRAN ABSOLUTE AUTO 0.01 K/mm3 (0.00-0.10); IMMATURE GRAN PERCENT AUTO 0 % (0-1); LYMPHOCYTES ABSOLUTE AUTO 1.51 K/mm3 (0.84-5.20); LYMPHOCYTES PERCENT AUTO 23 % (21-46); MONOCYTES ABSOLUTE AUTO 0.65 K/mm3 (0.16-1.47); MONOCYTES PERCENT AUTO 10 % (4-13); Mean Corpuscular HGB 26.7 pg (26.0-34.0); Mean Corpuscular HGB Conc 33.1 g/dL (31.5-36.5); Mean Corpuscular Volume 81 fL (80-100); Mean Platelet Volume 10.2 fL (9.1-12.4); NEUTROPHILS ABSOLUTE AUTO 4.29 K/mm3 (1.96-9.15); NEUTROPHILS PERCENT AUTO 65 % (41-73); Platelet Count 262 K/mm3 (150-400); RDW Coefficient Variation 14.2 % (11.7-14.2); RDW Standard Deviation 41.1 fL (35.1-46.3); Red Blood Cell Count 4.79 M/mm3 (4.30-5.90); White Blood Cell Count 6.63 K/mm3 (4.00-11.30)
[2022-04-18 20:26] LABS: Albumin, Blood 3.5 g/dL (3.4-5.0); Albumin/Globulin Ratio 0.9 (0.8-1.8); Bilirubin, Total 0.4 mg/dL (0.1-1.0); Bun/Creatinine Ratio 18.8 (12.0-20.0); Calcium, Blood 9.2 mg/dL (8.5-10.1); Creatinine, Blood 0.8 mg/dL (0.60-1.20); Potassium, Blood 4.2 mmol/L (3.5-5.5); Total Protein, Blood 7.5 g/dL (6.4-8.2)
[2022-04-18 20:40] LABS: C-REACTIVE PROTEIN, EXT RANGE 0.601 mg/dL (0.000-0.300)
[2022-04-19 05:18] LABS: BASOPHILS ABSOLUTE AUTO 0.03 K/mm3 (0.00-0.23); BASOPHILS PERCENT AUTO 1 % (0-2); EOSINOPHILS ABSOLUTE AUTO 0.17 K/mm3 (0.00-0.68); EOSINOPHILS PERCENT AUTO 3 % (0-6); Hematocrit 33.8 % (37.0-53.0); Hemoglobin 11.3 g/dL (13.5-17.5); IMMATURE GRAN ABSOLUTE AUTO 0.01 K/mm3 (0.00-0.10); IMMATURE GRAN PERCENT AUTO 0 % (0-1); LYMPHOCYTES ABSOLUTE AUTO 1.46 K/mm3 (0.84-5.20); LYMPHOCYTES PERCENT AUTO 23 % (21-46); MONOCYTES ABSOLUTE AUTO 0.67 K/mm3 (0.16-1.47); MONOCYTES PERCENT AUTO 11 % (4-13); Mean Corpuscular HGB 26.9 pg (26.0-34.0); Mean Corpuscular HGB Conc 33.4 g/dL (31.5-36.5); Mean Corpuscular Volume 81 fL (80-100); Mean Platelet Volume 10.2 fL (9.1-12.4); NEUTROPHILS ABSOLUTE AUTO 3.97 K/mm3 (1.96-9.15); NEUTROPHILS PERCENT AUTO 63 % (41-73); Platelet Count 223 K/mm3 (150-400); RDW Coefficient Variation 14.5 % (11.7-14.2); RDW Standard Deviation 41.6 fL (35.1-46.3); White Blood Cell Count 6.31 K/mm3 (4.00-11.30)
[2022-04-19 05:56] LABS: Bun/Creatinine Ratio 19.3 (12.0-20.0); Calcium, Blood 8.8 mg/dL (8.5-10.1); Creatinine, Blood 0.83 mg/dL (0.60-1.20); Potassium, Blood 4.1 mmol/L (3.5-5.5)
--- NOTE | 2022-04-19 06:46 | NUR ---
NEW ADMIT/MANAGER OF REGULATORY AFFAIRS SUMMARY PT ARRIVED F/ED VIA WHEELCHIAR AT 2258; XFERED INDEPENDENTLY T/THE BED. PT A/OX4; ABLE TO MAKE NEEDS KNOWN. PT IS APROX 1 MONTH POST OP F/SECOND TO REMOVAL ON LEFT FOOT. WOUND IS OPEN AND DRAINING; DEEP TISSUE CULTURE SENT T/LAB--RESULTS PENDING. PT HAS HX OF DMT2. PT STATES HE HAS BEEN PRESCRIBED ORAL DIABETIC MEDS BUT DOES NOT REMEMBER WHEN HE LAST TOOK IT; PT ALSO NOT CHECKING BLOOD SUGARS REGULARLY. PT HAS BEEN NPO SINCE MIDNIGHT. DR. SIMS T/MEET WITH PT TODAY. PT PLEASANT AND COOPERATIVE. ORIENTED TO ROOM AND CALL LIGHT. Q6 BLOOD SUGARS WITH REGULAR INSULIN COVERAGE. PT INDEPENDENT IN THE ROOM. CALL LIGHT IN REACH. BED LOCKED AND LOW.
[2022-04-19] MEDS ORDERED: AMOCLA875 PO (10:16)
[2022-04-19] MEDS ORDERED: VISBIOME 112.51 EACH PO (10:16)
--- NOTE | 2022-04-19 12:07 | NUR ---
PT DISCHARGED THE PT VERBALIZED UNDERSTANDING OF THE DC INSTRUCTIONS. FOLLOOW UP APPOINTMENT WAS MADE FOR THE PT PRIOR TO DC. THE PTS PRESCRIPTIONS FAXED TO PHARMACY OF HIS REQUEST. THE PT WAS TRANSFERED OUT VIA WHEELCHAIR ACCOMPANIED BY THE SHIPPING MANAGER AND HIS FRIEND
== END 2022-04-19 12:08 | disposition home or self-care (01) ==
LOC: ER 15:04 → MEDS 15:05
PROVIDERS: Student in an Organized Health Care Education/Training Program; ADMIT Family Medicine
DX: E11.69 Type 2 diabetes mellitus with other specified complication (principal); M86.9 Osteomyelitis, unspecified; Z89.422 Acquired absence of other left toe(s); Z91.038 Other insect allergy status; Z79.84 Long term (current) use of oral hypoglycemic drugs
CPT/HCPCS: 36415; 73630; 80048; 80053; 82947; 83605; 85025; 85651; 86140; 87040; 87070; 87075; 87077; 87147; 87186; 87205; 96365; 96366; 99285-25; A9270; G0378; J1815; J2543; J3370; J7050; J7120

== ENCOUNTER 2022-06-13 00:10 | Day surgery (SDC) | payer MEDICARE, OTHER ==
[~2022-06-13 00:10] MED LIST changes: +AMOCLA875 PO; +VISBIOME 112.51 EACH PO
== END 2022-06-13 23:36 | disposition home or self-care (01) ==
LOC: WOUND 00:10
DX: E11.69 Type 2 diabetes mellitus with other specified complication (principal); M86.172 Other acute osteomyelitis, left ankle and foot; L97.529 Non-pressure chronic ulcer of other part of left foot with unspecified severity; Z89.421 Acquired absence of other right toe(s)
CPT/HCPCS: G0463

== ENCOUNTER 2022-06-28 01:57 | Day surgery (SDC) | payer MEDICARE, OTHER | END 2022-06-28 22:45 | disposition home or self-care (01) | LOC: WOUND 01:57 | DX: T87.89 Other complications of amputation stump (principal); E11.69 Type 2 diabetes mellitus with other specified complication; E11.621 Type 2 diabetes mellitus with foot ulcer; L97.512 Non-pressure chronic ulcer of other part of right foot with fat layer exposed; M86.172 Other acute osteomyelitis, left ankle and foot; Z89.421 Acquired absence of other right toe(s) | CPT/HCPCS: A9270; G0463 ==

== ENCOUNTER 2022-07-12 02:20 | Day surgery (SDC) | payer MEDICARE, OTHER | END 2022-07-12 22:34 | disposition home or self-care (01) | LOC: WOUND 02:20 | DX: E11.621 Type 2 diabetes mellitus with foot ulcer (principal); Z89.421 Acquired absence of other right toe(s); E11.69 Type 2 diabetes mellitus with other specified complication; M86.172 Other acute osteomyelitis, left ankle and foot; L97.529 Non-pressure chronic ulcer of other part of left foot with unspecified severity | CPT/HCPCS: G0463 ==

== ENCOUNTER 2022-07-19 02:14 | Day surgery (SDC) | payer MEDICARE, OTHER | END 2022-07-19 22:36 | disposition home or self-care (01) | LOC: WOUND 02:14 | DX: T87.43 Infection of amputation stump, right lower extremity (principal); E11.621 Type 2 diabetes mellitus with foot ulcer; M86.172 Other acute osteomyelitis, left ankle and foot; L97.529 Non-pressure chronic ulcer of other part of left foot with unspecified severity | CPT/HCPCS: G0463 ==

== ENCOUNTER 2024-02-03 06:22 | Day surgery (SDC) | payer MEDICARE, OTHER ==
[~2024-02-03] VITALS: Ht 180.3 cm; Wt 80.1 kg
[~2024-02-03 06:22] MED LIST changes: +Bactrim Ds Tab1 EACH PO; +Dexamethasone Sod Phos 10 MG/ML 1ML VIAL ONE; +FentaNYL Citrate 50 MCG/ML 2 ML Injection ONE; +Midazolam HCl 1MG / ML 2ML Vial ONE; +Ondansetron HCl 2 MG / ML 2ML Vial ONE; +propofoL 20 ML IV ONE
[2024-02-03] MEDS ORDERED: CeFAZolin Sodium 2,000 MG VIAL ONE (06:37)
[2024-02-03] MEDS ORDERED: NS 50 ML IV ONE (06:37)
[2024-02-03] MEDS ORDERED: Ipratropium/Albuterol SulF 2.5-0.5MG/3 ML Amp ONE (06:47)
[2024-02-03] MEDS ORDERED: Ropivacaine 0.5% HCL/PF 5 MG/ML 30ML Vial ONE (07:00)
[2024-02-03] MEDS ORDERED: Lidocaine HCl 2% 10 ML SDA ONE (07:00)
[2024-02-03] MEDS ORDERED: Lactated Ringer's 1,000 ML IV ONE (07:23)
[2024-02-03 08:29] VITALS: BP 138/82
--- NOTE | 2024-02-03 09:08 | NUR ---
02/03/24 0908 Catrina Marcum PT HAD BLOOD SEEPING THROUGH BANDAGE INTO POST OP SHOE. DR. SIMS NOTIFIED AND WAS NOT CONCERNED DUE TO STITCHES BEING PUT IN TIGHT AND WELL APPROXIMATED. SEAM PRESS OPERATOR TY CAME TO STEP DOWN TO RE-DRESS SURGICAL SITE. PT HAD A BREATHING TX PRIOR TO SURGERY. POST OP HE WAS CLEAR IN RIGHT LUNG AND LIGHT WHEEZING TO LEFT LOWER LUNG. WHILE LISTENING TO LUNGS, NOTICED A WOUND ON UPPER LEFT BACK OVER BONY SCAPULA. APPROXIMATELY 0.5 INCHES DEEP, 1 INCH CIRCUMFERENCE WITH A RED RING ENCIRCLING WOUND. TEMP WAS 97.8. HE CLAIMED HE DID NOT KNOW IT WAS THERE. WE DISCUSSED URGENT CARE FOR WOUND CARE DUE TO NOT HAVING A PRIMARY PHYSICIOAN. HE AGREED HE WOULD GO TOMORROW AFTER HE RESTED TODAY. APPLIED ANTIBIOTIC CREAM AND COVERED WITH BAND-AID TO KEEP COVERED UNTIL HE IS SEEN FOR THIS.
== END 2024-02-03 08:55 | disposition home or self-care (01) ==
LOC: ORSCSDS 06:22
PROVIDERS: Podiatrist Foot & Ankle Surgery
PROC: 0Y6P0Z0 Detachment at Right 1st Toe, Complete, Open Approach (ICD-10-PCS; principal; 2024-02-03 07:30)
DX: M86.171 Other acute osteomyelitis, right ankle and foot (principal); E11.42 Type 2 diabetes mellitus with diabetic polyneuropathy; F17.210 Nicotine dependence, cigarettes, uncomplicated; Z79.899 Other long term (current) drug therapy
CPT/HCPCS: 82947; 88305; 88311; J0690; J1100; J2001; J2003; J2250; J2405; J2704; J2795; J3010

== ENCOUNTER 2024-11-01 19:49 | Emergency (ER) | payer MEDICARE, OTHER ==
[~2024-11-01] VITALS: Ht 180.3 cm; Wt 74.8 kg
[~2024-11-01 19:49] MED LIST changes: -Dexamethasone Sod Phos 10 MG/ML 1ML VIAL ONE; -FentaNYL Citrate 50 MCG/ML 2 ML Injection ONE; +IBUP800 PO; -Midazolam HCl 1MG / ML 2ML Vial ONE; -Ondansetron HCl 2 MG / ML 2ML Vial ONE; +SEMGLEE (Y100 UNIT/2 SC; +SULTRIDS PO; -propofoL 20 ML IV ONE
[2024-11-01 20:21] VITALS: BP 109/65
[2024-11-01 21:07] LABS: BASOPHILS ABSOLUTE AUTO 0.05 K/mm3 (0.00-0.23); BASOPHILS PERCENT AUTO 1 % (0-2); EOSINOPHILS ABSOLUTE AUTO 0.37 K/mm3 (0.00-0.68); EOSINOPHILS PERCENT AUTO 3 % (0-6); Hematocrit 32.5 % (37.0-53.0); Hemoglobin 10.5 g/dL (13.5-17.5); IMMATURE GRAN ABSOLUTE AUTO 0.02 K/mm3 (0.00-0.10); IMMATURE GRAN PERCENT AUTO 0 % (0-1); LYMPHOCYTES ABSOLUTE AUTO 1.29 K/mm3 (0.84-5.20); LYMPHOCYTES PERCENT AUTO 12 % (21-46); MONOCYTES ABSOLUTE AUTO 0.72 K/mm3 (0.16-1.47); MONOCYTES PERCENT AUTO 7 % (4-13); Mean Corpuscular HGB Conc 32.3 g/dL (31.5-36.5); Mean Corpuscular Volume 80 fL (80-100); NEUTROPHILS ABSOLUTE AUTO 8.46 K/mm3 (1.96-9.15); NEUTROPHILS PERCENT AUTO 78 % (41-73); NRBC ABSOLUTE 0.00 K/mm3 (0.00-0.02); NRBC Auto 0.0 /100 WBC (0.0-0.2); Platelet Count 416 K/mm3 (150-400); RDW Coefficient Variation 14.7 % (11.7-14.2); RDW Standard Deviation 42.2 fL (35.1-46.3)
[2024-11-01 21:39] LABS: Alanine Aminotransfer (ALT/SGP 16.0 U/L (12-78); Albumin, Blood 2.7 g/dL (3.4-5.0); Albumin/Globulin Ratio 0.5 (0.8-1.8); Anion Gap 8.0 mmol/L (3-11); Aspartate Aminotrans (AST/SGOT 5.0 U/L (12-37); Bilirubin, Total 0.3 mg/dL (0.1-1.0); Blood Urea Nitrogen 23.0 mg/dL (8-24); CO2, Blood 26.0 mmol/L (21-32); Calcium, Blood 9.1 mg/dL (8.5-10.1); Chloride, Blood 99.0 mmol/L (98-108); Creatinine, Blood 1.04 mg/dL (0.60-1.20); Globulin, Blood 5.1 g/dL (2.2-4.0); Glucose, Blood 412.0 mg/dL (70-99); Potassium, Blood 5.4 mmol/L (3.5-5.5); Sodium, Blood 128.0 mmol/L (136-145); Total Protein, Blood 7.8 g/dL (6.4-8.2)
== END 2024-11-02 00:39 | disposition left against medical advice (07) ==
LOC: ER 19:49
PROVIDERS: Student in an Organized Health Care Education/Training Program
DX: T87.81 Dehiscence of amputation stump (principal); E11.621 Type 2 diabetes mellitus with foot ulcer; L97.529 Non-pressure chronic ulcer of other part of left foot with unspecified severity; E11.65 Type 2 diabetes mellitus with hyperglycemia; E87.1 Hypo-osmolality and hyponatremia; Z53.29 Procedure and treatment not carried out because of patient's decision for other reasons; Z91.030 Bee allergy status; Z79.4 Long term (current) use of insulin; Z79.899 Other long term (current) drug therapy; Z59.89 Other problems related to housing and economic circumstances
CPT/HCPCS: 73630; 80053; 83605; 85025; 99284-25

== ENCOUNTER 2024-11-26 03:28 | Day surgery (SDC) | payer MEDICARE, OTHER ==
[2024-11-26] MEDS ORDERED: Lidocaine HCl 4% Cream 5 GM ONE (08:08)
== END 2024-11-26 23:00 | disposition home or self-care (01) ==
LOC: WOUND 03:28
DX: E11.621 Type 2 diabetes mellitus with foot ulcer (principal); L97.524 Non-pressure chronic ulcer of other part of left foot with necrosis of bone; E11.69 Type 2 diabetes mellitus with other specified complication; M86.172 Other acute osteomyelitis, left ankle and foot; M72.6 Necrotizing fasciitis; E11.42 Type 2 diabetes mellitus with diabetic polyneuropathy; F17.290 Nicotine dependence, other tobacco product, uncomplicated; Z89.432 Acquired absence of left foot; Z91.030 Bee allergy status
CPT/HCPCS: A9270; G0463

== ENCOUNTER → 2024-12-03 | Outpatient (CLI) | payer MEDICARE, OTHER ==
[2024-12-03 13:28] LABS: Hematocrit 34.8 % (37.0-53.0); Hemoglobin 10.9 g/dL (13.5-17.5); Mean Corpuscular HGB Conc 31.3 g/dL (31.5-36.5); Mean Corpuscular Volume 81 fL (80-100); NRBC ABSOLUTE 0.00 K/mm3 (0.00-0.02); NRBC Auto 0.0 /100 WBC (0.0-0.2); Platelet Count 372 K/mm3 (150-400); RDW Coefficient Variation 15.8 % (11.7-14.2); RDW Standard Deviation 46.7 fL (35.1-46.3)
[2024-12-03 14:26] LABS: Alanine Aminotransfer (ALT/SGP 17.0 U/L (12-78); Albumin, Blood 2.7 g/dL (3.4-5.0); Albumin/Globulin Ratio 0.5 (0.8-1.8); Anion Gap 9.0 mmol/L (3-11); Aspartate Aminotrans (AST/SGOT 8.0 U/L (12-37); Bilirubin, Total 0.3 mg/dL (0.1-1.0); Blood Urea Nitrogen 16.0 mg/dL (8-24); CO2, Blood 26.0 mmol/L (21-32); Calcium, Blood 9.2 mg/dL (8.5-10.1); Chloride, Blood 104.0 mmol/L (98-108); Creatinine, Blood 0.84 mg/dL (0.60-1.20); Ferritin, Serum 585.0 ng/mL (26-388); Globulin, Blood 5.1 g/dL (2.2-4.0); Glucose, Blood 223.0 mg/dL (70-99); Potassium, Blood 4.5 mmol/L (3.5-5.5); Sodium, Blood 134.0 mmol/L (136-145); Total Iron Binding Capacity 143.0 ug/dL (250-450); Total Protein, Blood 7.8 g/dL (6.4-8.2)
== END | disposition home or self-care (01) ==
LOC: LAB SHORT 12:13 → LAB 12:13
PROVIDERS: Family Medicine
DX: E11.65 Type 2 diabetes mellitus with hyperglycemia (principal); D64.9 Anemia, unspecified; Z79.4 Long term (current) use of insulin
CPT/HCPCS: 80053; 82728; 83036; 83540; 83550; 85027

== ENCOUNTER 2024-12-07 00:48 | Day surgery (SDC) | payer MEDICARE, OTHER ==
[2024-12-07] MEDS ORDERED: Lidocaine HCl 4% Cream 5 GM ONE (14:31)
== END 2024-12-07 23:00 | disposition home or self-care (01) ==
LOC: WOUND
DX: T81.31XA Disruption of external operation (surgical) wound, not elsewhere classified, initial encounter (principal); E11.621 Type 2 diabetes mellitus with foot ulcer; L97.526 Non-pressure chronic ulcer of other part of left foot with bone involvement without evidence of necrosis; E11.69 Type 2 diabetes mellitus with other specified complication; M86.172 Other acute osteomyelitis, left ankle and foot; M72.6 Necrotizing fasciitis; E11.42 Type 2 diabetes mellitus with diabetic polyneuropathy
CPT/HCPCS: A9270; G0463

== ENCOUNTER 2024-12-18 12:19 | Day surgery (SDC) | payer MEDICARE, OTHER ==
[~2024-12-18] VITALS: Ht 180.3 cm; Wt 69.9 kg
[~2024-12-18 12:19] MED LIST changes: +Lidocaine HCl 2% 10 ML SDA ONE
[2024-12-18] MEDS ORDERED: CeFAZolin Sodium 2,000 MG VIAL ONE (12:28)
[2024-12-18] MEDS ORDERED: METR500 (12:51)
[2024-12-18] MEDS ORDERED: JARDIANCE25 MG (12:52)
[2024-12-18] MEDS ORDERED: TYLENOL PM (12:53)
[2024-12-18] MEDS ORDERED: Midazolam HCl 1MG / ML 2ML Vial ONE (14:43)
[2024-12-18] MEDS ORDERED: FentaNYL Citrate 50 MCG/ML 2 ML Injection ONE (14:49)
--- NOTE | 2024-12-18 16:02 | NUR ---
12/18/24 1602 Sarina Sanabria CALL OUT TO DR. SIMS TO ASK ABOUT BLANK RX SLIP AND CLARIFY WEIGHT-BEARING STATUS PER ANESTHESIA, HR IS LOW 100S ACCEPTABLE FOR DC
[2024-12-18 16:33] VITALS: BP 106/86
== END 2024-12-18 16:29 | disposition home or self-care (01) ==
LOC: ORSCSDS 12:19
PROVIDERS: Podiatrist Foot & Ankle Surgery
PROC: 0Y6N0Z9 Detachment at Left Foot, Partial 1st Ray, Open Approach (ICD-10-PCS; principal; 2024-12-18 14:00)
DX: M86.172 Other acute osteomyelitis, left ankle and foot (principal); I82.402 Acute embolism and thrombosis of unspecified deep veins of left lower extremity; E11.42 Type 2 diabetes mellitus with diabetic polyneuropathy; K21.9 Gastro-esophageal reflux disease without esophagitis; Z79.84 Long term (current) use of oral hypoglycemic drugs; Z79.4 Long term (current) use of insulin
CPT/HCPCS: 82947; 88305; A6253; J0690; J2003; J2250; J3010; J7120

== ENCOUNTER 2025-01-21 02:13 | Day surgery (SDC) | payer MEDICARE, OTHER ==
[~2025-01-21 02:13] MED LIST changes: +JARDIANCE25 MG; -Lidocaine HCl 2% 10 ML SDA ONE; +METR500; +TYLENOL PM
[2025-01-21] MEDS ORDERED: Lidocaine HCl 4% Cream 5 GM ONE (14:30)
== END 2025-01-21 23:00 | disposition home or self-care (01) ==
LOC: WOUND 02:13
DX: E11.621 Type 2 diabetes mellitus with foot ulcer (principal); E11.42 Type 2 diabetes mellitus with diabetic polyneuropathy; L97.523 Non-pressure chronic ulcer of other part of left foot with necrosis of muscle; Z89.422 Acquired absence of other left toe(s)
CPT/HCPCS: A9270; G0463

== ENCOUNTER 2025-01-26 02:25 | Day surgery (SDC) | payer MEDICARE, OTHER ==
[2025-01-26] MEDS ORDERED: Lidocaine HCl 4% Cream 5 GM ONE (15:30)
== END 2025-01-26 22:00 | disposition home or self-care (01) ==
LOC: WOUND 02:25
DX: E11.621 Type 2 diabetes mellitus with foot ulcer (principal); L97.523 Non-pressure chronic ulcer of other part of left foot with necrosis of muscle; E11.42 Type 2 diabetes mellitus with diabetic polyneuropathy; Z89.421 Acquired absence of other right toe(s); Z89.422 Acquired absence of other left toe(s)
CPT/HCPCS: A9270

== ENCOUNTER 2025-02-09 01:58 | Day surgery (SDC) | payer MEDICARE, OTHER ==
[2025-02-09] MEDS ORDERED: Lidocaine HCl 4% Cream 5 GM ONE (14:27)
== END 2025-02-09 23:00 | disposition home or self-care (01) ==
LOC: WOUND 01:58
DX: T87.81 Dehiscence of amputation stump (principal); S41.002A Unspecified open wound of left shoulder, initial encounter; X58.XXXA Exposure to other specified factors, initial encounter; E11.42 Type 2 diabetes mellitus with diabetic polyneuropathy; Z89.421 Acquired absence of other right toe(s); Z89.432 Acquired absence of left foot; Z91.038 Other insect allergy status
CPT/HCPCS: 11104; 88305; A6213; A9270

== ENCOUNTER 2025-02-17 03:18 | Day surgery (SDC) | payer MEDICARE, OTHER ==
[2025-02-17] MEDS ORDERED: Lidocaine HCl 4% Cream 5 GM ONE (12:38)
== END 2025-02-17 23:00 | disposition home or self-care (01) ==
LOC: WOUND 03:18
DX: E11.621 Type 2 diabetes mellitus with foot ulcer (principal); L97.523 Non-pressure chronic ulcer of other part of left foot with necrosis of muscle; Z89.421 Acquired absence of other right toe(s); Z89.422 Acquired absence of other left toe(s); L98.422 Non-pressure chronic ulcer of back with fat layer exposed; E11.42 Type 2 diabetes mellitus with diabetic polyneuropathy
CPT/HCPCS: A9270

== ENCOUNTER 2025-03-05 00:21 | Day surgery (SDC) | payer MEDICARE, OTHER ==
[2025-03-05] MEDS ORDERED: Lidocaine HCl 4% Cream 5 GM ONE (12:31)
== END 2025-03-05 23:00 | disposition home or self-care (01) ==
LOC: WOUND 00:21
DX: T87.81 Dehiscence of amputation stump (principal); S41.002D Unspecified open wound of left shoulder, subsequent encounter; X58.XXXD Exposure to other specified factors, subsequent encounter; E11.42 Type 2 diabetes mellitus with diabetic polyneuropathy; Z89.421 Acquired absence of other right toe(s); Z89.422 Acquired absence of other left toe(s); Z98.890 Other specified postprocedural states
CPT/HCPCS: A6213; A9270

== ENCOUNTER 2025-03-12 02:24 | Day surgery (SDC) | payer MEDICARE, OTHER ==
[2025-03-12] MEDS ORDERED: Lidocaine HCl 4% Cream 5 GM ONE (12:39)
== END 2025-03-12 23:00 | disposition home or self-care (01) ==
LOC: WOUND 02:24
DX: T87.81 Dehiscence of amputation stump (principal); S41.002D Unspecified open wound of left shoulder, subsequent encounter; X58.XXXD Exposure to other specified factors, subsequent encounter; E11.42 Type 2 diabetes mellitus with diabetic polyneuropathy; Z98.890 Other specified postprocedural states
CPT/HCPCS: A6213; A9270; G0463

== ENCOUNTER 2025-04-01 02:11 | Day surgery (SDC) | payer MEDICARE, OTHER ==
[2025-04-01] MEDS ORDERED: Lidocaine HCl 4% Cream 5 GM ONE (13:27)
== END 2025-04-01 23:00 | disposition home or self-care (01) ==
LOC: WOUND 02:11
DX: E11.621 Type 2 diabetes mellitus with foot ulcer (principal); L97.525 Non-pressure chronic ulcer of other part of left foot with muscle involvement without evidence of necrosis; L98.422 Non-pressure chronic ulcer of back with fat layer exposed; E11.42 Type 2 diabetes mellitus with diabetic polyneuropathy; Z98.890 Other specified postprocedural states
CPT/HCPCS: A6213; A9270